=== PATIENT | male | born 1965 | race Caucasian/White ===

== ENCOUNTER → 2018-04-25 | Outpatient (CLI) | payer BC, OTHER ==
--- NOTE | 2018-04-26 10:24 | REP ---
MRI RIGHT ANKLE: TECHNIQUE: Sagittal proton density, STIR, axial proton density fat sat, T1, coronal proton density, STIR. The Achilles, anterior tibial, posterior tibial, flexor hallucis longus, flexor digitorum longus, and peroneal tendons are all intact. Anterior and posterior talofibular, calcaneofibular, and deltoid ligaments are intact. Plantar fascia demonstrates no abnormal signal. Plantar tendon is intact. There is no plantar fascitis. Mild joint fluid is seen along the posterior tibial calcaneal joint. There is diffuse ill-defined high signal on T2-weighted images in the region of the sinus tarsi raising the possibility of sinus tarsi syndrome. IMPRESSION: No evidence of tendon or ligament tear. No occult fracture. Mild joint effusion at the talocalcaneal joint posteriorly. Ill-defined high signal edema on T2-weighted images in the sinus tarsi raises the possibility of sinus tarsi syndrome. Electronically Signed by Jared Gilbert MD 04/26/2018 07:00 P
== END ==
LOC: M RAD 11:30
PROVIDERS: ATTEND Orthopaedic Surgery Sports Medicine
DX: M25.571 Pain in right ankle and joints of right foot (principal); M25.471 Effusion, right ankle